=== PATIENT | male | born 1950 | race Two or more races ===

== ENCOUNTER 2019-06-09 14:58 | Outpatient (CLI) | payer MEDICARE, BC | END 2019-06-09 23:59 | disposition home or self-care (01) | LOC: WOU 14:58 | PROVIDERS: ATTEND Surgery | DX: L90.5 Scar conditions and fibrosis of skin (principal); T23.202S Burn of second degree of left hand, unspecified site, sequela; X12.XXXS Contact with other hot fluids, sequela; M79.642 Pain in left hand; Z79.82 Long term (current) use of aspirin | CPT/HCPCS: G0463 ==